=== PATIENT | female | born 1995 | race Caucasian/White ===

== ENCOUNTER 2020-02-05 16:22 | Inpatient (IN) | payer BC ==
[2020-02-05 16:52] LABS: APPEARANCE,URINE SLIGHTLY-CLOUDY; BILIRUBIN,URINE NEGATIVE (NEGATIVE); COLOR,URINE YELLOW; GLUCOSE, URINE NEGATIVE (NEGATIVE); KETONES,URINE TRACE mg/dL (NEGATIVE); LEUKOCYTE ESTERASE,URINE NEGATIVE (NEGATIVE); NITRITE,URINE NEGATIVE (NEGATIVE); PROTEIN,URINE NEGATIVE (NEGATIVE); URINE SPECIFIC GRAVITY 1.015; UROBILINOGEN,URINE NEGATIVE mg/dL (<2.0)
--- NOTE | 2020-02-05 17:03 | Admission Physical ---
Datetime Report Generated by CPN: 02/05/2020 17:03 CURRENT ADMISSION Chief Complaint: Uterine Contractions Chief Complaint Other: GBS neg Indication for Induction: Post Dates Admit Impression : Term, Intrauterine ; Active Labor Admit Plan: Admit to Unit; Initiate Labor Protocol ALLERGIES Medication Allergies: No Medication Allergies: No Known Allergies (02/05/2020) Latex: No Latex Allergies OBSTETRICAL HISTORY EDC: 02/03/2020 00:00 : 1 Para: 0 Term: 0 : 0 SAB: 0 IAB: 0 Livin PHYSICAL EXAM General: Normal HEENT: Deferred Neurologic: Normal Thyroid: Deferred Heart: Normal Lungs: Normal Breast: Deferred Back: Deferred Abdomen: Normal Genitourinary Exam: Normal Extremities: Normal DTRs: Deferred Pelvic Type: Adequate Physical Exam Comments: cervix exam per RN 5cm with BBOW was seen at [facility] today about 2 hrs ago and was 4cm Vital Signs: Reviewed FETUS A EGA: 40.2 Monitoring: External US FHR- Baseline: 145 Variability: Moderate 6-25bpm Accelerations: 15X15 FHR Category: Category I Presentation: Vertex Admit Comment: GBS neg INFORMED CONSENT Assignment: Jamie Yarbrough MD Signature: with User ID: Billy : with User ID: Billy
[2020-02-05 17:09] LABS: URINE AMPHETAMINES SCREEN NEGATIVE; URINE BARBITURATES SCREEN NEGATIVE; URINE BENZODIAZEPINES SCREEN NEGATIVE; URINE COCAINE SCREEN NEGATIVE; URINE MARIJUANA (THC) SCREEN NEGATIVE; URINE METHADONE SCREEN NEGATIVE; URINE PHENCYCLIDINE SCREEN NEGATIVE
[2020-02-05] MEDS ORDERED: RINGERS SOLUTION,LACTATED 1,000 ML IV PRN (17:52)
[2020-02-05] MEDS ORDERED: RINGERS SOLUTION,LACTATED 1,000 ML IV ONE (17:52)
[2020-02-05] MEDS ORDERED: EPHEDRINE SULFATE INJ 50 MG/1 ML AMPULE ONE (19:36)
[2020-02-05] MEDS ORDERED: ROPIVACAINE HCL 0.2% INJ/PF (2 MG/ML) 20 ML SDV ONE (19:36)
[2020-02-05] MEDS ORDERED: FENTANYL/BUPIVACAINE/NS/PF 300 MCG/150 ML RTUINJ EPI ONE (19:36)
[2020-02-05] MEDS ORDERED: OXYTOCIN 10 UNIT/ML VIAL ONE (19:37)
[2020-02-05] MEDS ORDERED: MISOPROSTOL 0.2 MG TABLET ONE (19:37)
[2020-02-05] MEDS ORDERED: OXYTOCIN/0.9 % SODIUM CHLORIDE 30 UNIT/500 ML RTUINJ ONE (19:37)
[2020-02-05] MEDS ORDERED: LIDOCAINE 1% INJ-PF (10 MG/ML) 30 ML SDV ONE (19:37)
[2020-02-05 19:48] LABS: ABSOLUTE LYMPHOCYTES (AUTO) 0.9 10^3/uL (0.5-4.7); ABSOLUTE MONOCYTES (AUTO) 0.8 10^3/uL (0.1-1.4); BASOPHILS % (AUTO) 0.1 % (0-2); EOSINOPHILS % (AUTO) 0.1 % (0-6); HEMATOCRIT 38.1 % (36.0-47.0); LYMPHOCYTES % (AUTO) 6.8 % (13-45); MEAN CORPUSCULAR HEMOGLOBIN 33.2 pg (27.0-33.4); MEAN CORPUSCULAR HGB CONC 34.1 g/dL (32.0-36.0); MEAN CORPUSCULAR VOLUME 97 fl (80-97); MONOCYTES % (AUTO) 5.7 % (3-13); PLATELET COUNT 150 10^3/uL (150-450); RED BLOOD COUNT 3.92 10^6/uL (3.72-5.28); RED CELL DISTRIBUTION WIDTH 13.7 % (11.5-14.0); SEGMENTED NEUTROPHILS % (AUTO) 87.3 % (42-78); TOTAL CELLS COUNTED % (AUTO) 100 %; WHITE BLOOD COUNT 13.7 10^3/uL (4.0-10.5)
[2020-02-05] MEDS ORDERED: OXYTOCIN/0.9 % SODIUM CHLORIDE 30 UNIT/500 ML RTUINJ IV PRN (21:26)
[2020-02-06] MEDS ORDERED: ACETAMINOPHEN 325 MG TABLET ONE (01:51)
[2020-02-06] MEDS ORDERED: MAGNESIUM HYDROXIDE SUSP 30 ML UDCUP PO PRN (03:01)
[2020-02-06] MEDS ORDERED: ACETAMINOPHEN 650 MG SUPP.RECT PR PRN (03:01)
[2020-02-06] MEDS ORDERED: ACETAMINOPHEN 325 MG TABLET PO PRN (03:01)
[2020-02-06] MEDS ORDERED: MEASLES,MUMPS&RUBELLA VACC/PF 0.5 ML VIAL SUBCUT PRN (03:01)
[2020-02-06] MEDS ORDERED: VARICELLA VACC/PF (1350 UNIT/0.5 ML) 0.5 ML VIAL SUBCUT PRN (03:01)
[2020-02-06] MEDS ORDERED: GLYCERIN/WITCH HAZEL LEAF 1 EACH MED..WIPE TP PRN (03:01)
[2020-02-06] MEDS ORDERED: MAG HYDROX/AL HYDROX/SIMETH SUSP 30 ML UDCUP PO PRN (03:01)
[2020-02-06] MEDS ORDERED: DIPH/PERTUSS(ACELL)/TETANUS VAC/PF 0.5 ML SYR (>=10YO) IM PRN (03:01)
[2020-02-06] MEDS ORDERED: ACETAMINOPHEN WITH CODEINE #3 TABLET PO PRN (03:01)
[2020-02-06] MEDS ORDERED: ZOLPIDEM TARTRATE 5 MG TABLET PO PRN (03:01)
[2020-02-06] MEDS ORDERED: BENZOCAINE/MENTHOL AEROSOL SPRAY 56 ML TOP PRN (03:01)
[2020-02-06] MEDS ORDERED: DIPHENHYDRAMINE HCL 25 MG CAPSULE PO PRN (03:01)
[2020-02-06] MEDS ORDERED: OXYTOCIN/0.9 % SODIUM CHLORIDE 30 UNIT/500 ML RTUINJ IV PRN (03:01)
[2020-02-06] MEDS ORDERED: PSEUDOEPHEDRINE HCL 30 MG TABLET PO PRN (03:01)
[2020-02-06] MEDS ORDERED: FAMOTIDINE 20 MG TABLET PO PRN (03:01)
[2020-02-06] MEDS ORDERED: DIBUCAINE 1% OINTMENT 28 GM TP PRN (03:01)
--- NOTE | 2020-02-06 04:17 | Birth Certificate Data ---
Cert Data Datetime Report Generated by CPN: 02/06/2020 04:16 CERTIFICATE DATA Delivery Provider: Jamie Yarbrough MD (02/05/2020 16:45:Marisa Sinclair RN) 47a. Care: Yes (02/05/2020 16:45:Aileen Butcher RN) 47b. Date of First Visit: 07/25/2019 00:00 (02/05/2020 16:45:Aileen Butcher RN) 47c. Date of Last Visit: 02/05/2020 00:00 (02/05/2020 16:45:Aileen Butcher RN) 47d. Number of Visits: 11 (02/05/2020 16:45:Aileen Butcher RN) 48a. Number of Prev Live Births: 0 (02/05/2020 16:45:Aileen Butcher RN) 48b. Now Livin (02/05/2020 16:45:Rosmery Hui RN) 48c. Live Births Now : 0 (02/05/2020 16:45:QS system process) 48e. Losses: 0 (02/05/2020 16:45:Aileen Butcher RN) RISK FACTORS IN THIS 49a. Diabetes: No (02/05/2020 16:45:Rosmery Hui RN) 49b. Hypertension: No (02/05/2020 16:45:Rosmery Hui RN) 49c. Previous Births: 0 (02/05/2020 16:45:Rosmery Hui RN) 49d. Stillborns: No (02/05/2020 16:45:Rosmery Hui RN) 49d. IUGR: No (02/05/2020 16:45:Rosmery Hui RN) 49e. Infertility Treatment: No (02/05/2020 16:45:Rosmery Hui RN) 49f. Previous Cesareans: 0 (02/05/2020 16:45:Aileen Butcher RN) Mother's Height 50b. Height Inches: 64 (02/05/2020 17:09:QS system process) Mother's Weight 51a. Pre- Weight (lbs): 104 (02/05/2020 16:45:Aileen Butcher RN) 51b. Weight at Delivery (lbs): 130 (02/05/2020 16:36:QS system process) Infections Present/Treated 53a. Gonorrhea: No (02/05/2020 16:45:Rosmery Hui RN) Results this Hospital Visit : Negative (02/05/2020 16:45:Rosmery Hui RN) 53b. Syphilis: No (02/05/2020 16:45:Rosmery Hui RN) 53c. Chlamydia: No (02/05/2020 16:45:Rosmery Hui RN) Results this Hospital Visit: Negative (02/05/2020 16:45:Rosmery Hui RN) 53d. Hepatitis B: No (02/05/2020 16:45:Rosmery Hui RN) Results this Hospital Visit: Negative (02/05/2020 16:45:Rosmery Hui RN) 53e. Hepatitis C: Negative (02/05/2020 16:45:Rosmery Hui RN) 53h. Mother Tested for HBsAG: Yes (02/05/2020 16:45:Rosmery Hui RN) 53i. Date Tested: 07/25/2019 00:00 (02/05/2020 16:45:Rosmery Hui RN) 53j. Test Result: Negative (02/05/2020 16:45:Rosmery Hui RN) Obstetric Procedures 54a, b, c. Obstetric Procedures: Ultrasound (02/05/2020 16:45:Rosmery Hui RN) Cigarette Smoking Cigarette Smoking: Never Smoker. [id number] (02/05/2020 16:45:Aileen Butcher RN) 55a. 3 Months Before Preg - Ci (02/05/2020 16:45:Aileen Butcher RN) 55a. Packs: 0 (02/05/2020 16:45:Aileen Butcher RN) 55b. 1st Trimester of Preg- Ci (02/05/2020 16:45:Aileen Butcher RN) 55b. Packs: 0 (02/05/2020 16:45:Aileen Butcher RN) 55c. 2nd Trimester of Preg- Ci (02/05/2020 16:45:Aileen Butcher RN) 55c. Packs: 0 (02/05/2020 16:45:Aileen Butcher RN) 55d. 3rd Trimester of Preg- Ci (02/05/2020 16:45:Aileen Butcher RN) 55d. Packs: 0 (02/05/2020 16:45:Aileen Butcher RN) Onset of Labor 56a. PROM >12 Hrs: 6.07 (02/05/2020 16:45:QS system process) 56b. Precipitous Labor <3 Hrs: 9 (02/05/2020 16:45:QS system process) 56c. Prolonged Labor > 20 Hrs: 9 (02/05/2020 16:45:QS system process) 57a. Induction of Labor: Augmentation (02/05/2020 16:45:Marisa Sinclair RN) 57c. Non-Vertex Presentation A: Face (02/05/2020 16:45:Marisa Sinclair RN) 57d. Steroids - Lung Mat: None (02/05/2020 16:45:Marisa Sinclair RN) 57d. Steroids - Lung Mat: Not Applicable (02/05/2020 16:45:Marisa Sinclair RN) 57f. Mat [place] or Temp >100.4: 100.2 (02/05/2020 16:45:Marisa Sinclair RN) 57g. Moderate/Heavy Meconium: Clear (02/05/2020 20:44:Marisa Sinclair RN) 57h. Intolerance of Labor: N/A (02/05/2020 16:45:Marisa Sinclair RN) : N/A (02/05/2020 16:45:Marisa Sinclair RN) 57i. Epidural/Spinal Anesthesia: Epidural (02/05/2020 16:45:Marisa Sinclair RN) Method of Delivery 58a. Forceps - Unsuccessful A: N/A (02/05/2020 16:45:Marisa Sinclair RN) 58b. Vacuum - Unsuccessful A: N/A (02/05/2020 16:45:Marisa Sinclair RN) 58c. Presentation at 58c. Presentation at - A : Face (02/05/2020 16:45:Marisa Sinclair RN) 58c. Presentation at - A : N/A (02/05/2020 16:45:Marisa Sinclair RN) 58c. Presentation at - A : Cephalic (02/06/2020 00:00:Marisa Sinclair RN) Final Route and Method of Del 58d. Baby A Route/Delivery: Vaginal (02/06/2020 02:48:Marisa Sinclair RN) 58e. Trial of Labor Attempted: Yes (02/05/2020 16:45:Marisa Sinclair RN) 58e. Trial of Labor Attempted A: N/A (02/05/2020 16:45:Marisa Sinclair RN) 58e. Trial of Labor Attempted B: N/A (02/05/2020 16:45:Marisa Sinclair RN) Maternal Morbidity 59b. 3rd or 4th Degree Lacs: Vaginal (02/05/2020 16:45:Jamie Yarbrough MD ([facility])) Birthweight Baby A: 3439 (02/05/2020 16:45:Brittany Washburn RN) 60a. Pounds : 7 (02/05/2020 16:45:QS system process) 60b. Ounces: 9 (02/05/2020 16:45:QS system process) 61. GA at Delivery Baby A: 40.3 (02/05/2020 16:45:Marisa Sinclair RN) : Full Term- 39- 40.6 Weeks (02/05/2020 16:45:QS system process) 62a. 5 Minute Baby A: 6 (02/05/2020 16:45:QS system process) 62b. 10 Minute Baby A: 8 (02/05/2020 16:45:QS system process)
--- NOTE | 2020-02-06 04:17 | Delivery Summary ---
Del Sum A-C Datetime Report Generated by CPN: 02/06/2020 04:16 DELIVERY PERSONNEL DELIVERY PERSONNEL: [id number] Delivery Doctor:: Jamie Yarbrough MD Labor and Delivery Nurse:: Marisa Sinclair RNdope worker Nurse:: Griselda Toney RN Nursery Nurse:: Brittany Washburn RN Nursery Nurse:: Danica Arenas RN Calculating Machine Operator/[employer] SERVICE EMPLOYEE: Maricarmen Green, ST MATERNAL INFORMATION Delivery Anesthesia: Epidural Medications After Delivery: Pitocin Bolus-Please Comment Maternal Complications: None LABOR SUMMARY EDC: 02/03/2020 00:00 No. Babies in Womb: 1 Attempted: Yes Labor Anesthesia: Epidural LABOR INFORMATION Reason for Induction: Not Applicable Onset of Labor: 02/05/2020 16:54 Complete Dilatation: 02/06/2020 00:00 Oxytocin: Augmentation Group B Beta Strep: neg Antibiotics # of Doses: 0 Name of Antibiotic Given: n/a Steroids Given: None Reason Steroids Not Administered: Not Applicable MEMBRANES Membranes Rupture Method: Artificial Rupture of Membranes: 02/05/2020 20:44 Length of Rupture (hr): 6.07 Amniotic Fluid Color: Clear Amniotic Fluid Amount: Moderate Amniotic Fluid Odor: Normal STAGES OF LABOR Stage 1 hr: 7 Stage 1 min: 6 Stage 2 hr: 2 Stage 2 min: 48 Stage 3 hr: 0 Stage 3 min: 3 Total Time in Labor hr: 9 Total Time in Labor min: 57 VAGINAL DELIVERY Episiotomy: None Laceration #1: Vaginal Laceration Repair: Yes Laceration Repair Note: labial tear and right vaginal side wall tear repaired with 2-0 vicryl Sponge Count Correct: Yes Sharps Count Correct: Yes CSECTION DELIVERY Primary Indication: N/A Secondary Indication: N/A CSection Incidence: N/A Labor: N/A Elective: N/A CSection Incision: N/A BABY A INFORMATION Infant Delivery Date/Time: 02/06/2020 02:48 Method of Delivery: Vaginal Nurse Controlled Delivery: No Born in Route : No : N/A Forceps: N/A Vacuum Extraction: N/A Shoulder Dystocia : No PRESENTATION/POSITION BABY A Presentation: Cephalic Cephalic Presentation: Face Vertex Position: Right Mentum Posterior Breech Presentation: N/A PLACENTA INFORMATION BABY A Placenta Delivery Time : 02/06/2020 02:51 Placenta Method of Delivery: Spontaneous Placenta Status: Delivered SCORES BABY A Heart Rate 1 min: Slow, Below 100 bpm Resp Effort 1 min: Absent Reflex Irritability 1 min: No Response Muscle Tone 1 min: Some Flexion of Extremities Color 1 min: Blue/Pale Resuscitation Effort 1 min: Tactile Stimulation; Oxygen; PPV/NCPAP SCORE 1 MIN: 2 Heart Rate 5 min: >100 bpm Resp Effort 5 min: Slow, Irregular Reflex Irritability 5 min: [place] Muscle Tone 5 min: Some Flexion of Extremities Color 5 min: Body [place], Extremities Blue SCORE 5 MIN: 6 Heart Rate 10 min: >100 bpm Resp Effort 10 min: [place] Reflex Irritability 10 min: Cough or Sneeze or Pulls Away Muscle Tone 10 min: Some Flexion of Extremities Color 10 min: Body [place], Extremities Blue SCORE 10 MIN: 8 INFANT INFORMATION BABY A Gestational Age at Delivery: 40.3 Gestational Status: Full Term- 39- 40.6 Weeks Infant Outcome : Liveborn Condition : Stable Sex: Male IDENTIFICATION BABY A Verification Date/Time: 02/06/2020 04:01 ID Band Number: [id number] Mother's Name Verified: Yes Infant RN Verifying Infant: Ty Toney, RN/ Ángel Charles, RN WEIGHT/LENGTH BABY A Birthweight (gm): 3439 Weight (lb): 7 Weight (oz): 9 Infant Length (in): 20.50 Length (cm): 52.07 CORD INFORMATION BABY A No. Cord Vessels: 3 Nuchal Cord : N/A Cord Blood Taken: Yes-For Storage (Mom's Blood type +) ASSESSMENT BABY A Infant Complications: Meconium Physical Findings at Delivery: Bruising; Other Infant Respirations: Grunting; Sternal Retractions Skin to Skin: No Transferred To: NICU BABY B INFORMATION : N/A SIGNATURES Signature: with User ID: [email or web address] : I was personally available for consultation and serving as supervising physician for the MLP.
[2020-02-06] MEDS: IBUPROFEN 800 MG TABLET PO SCH ×3 (05:57→21:19)
--- NOTE | 2020-02-06 11:16 | PDOC PROGRESS REPORT ---
Subjective-OB Progress Note for:: 02/06/20 Subjective: pt in nursery to see baby, mom in room and states she is doing well, voiding and eating well, Physical Exam (OB) Vital Signs: Temp Pulse Resp BP Pulse Ox 97.9 F 67 16 122/76 99 02/06/20 07:58 02/06/20 07:58 02/06/20 07:58 02/06/20 07:58 02/06/20 07:58 Intake & Output 02/05/20 02/06/20 02/07/20 06:59 06:59 06:59 Intake Total 320 Output Total 650 Balance -330 Weight 59 kg - PIH/Pre-Eclampsia Clonus: Negative Headache: Absent Epigastric Pain: No Visual Changes: No - Maternal Morbidity 59. Maternal Morbidity (serious complications experinced by the mother associated with labor and delivery: None of the above - Lochia Lochia Amount: Small 10-25 ml Lochia Color: Rubra/Red - Abdomen Description: Soft, Round Hernia Present: No Fundal Description: Firm, Non-Midline Describe if Not Midline: slghtly right deviated Fundal Height: u/u - u/2 Objective-Diagnostic Laboratory: 02/05/20 19:34 02/05/20 02/05/20 02/05/20 16:40 19:34 19:34 WBC 13.7 H RBC 3.92 Hgb 13.0 Hct 38.1 MCV 97 MCH 33.2 MCHC 34.1 RDW 13.7 Plt Count 150 Seg Neutrophils % 87.3 H Urine Color YELLOW Urine Appearance SLIGHTLY-CLOUDY Urine pH 6.0 Ur Specific [place] 1.015 Urine Protein NEGATIVE Urine Glucose (UA) NEGATIVE Urine Ketones TRACE H Urine Blood MODERATE H Urine Nitrite NEGATIVE Ur Leukocyte Esterase NEGATIVE Blood Type A POSITIVE Antibody Screen NEGATIVE Assessment and Plan(PN) - Assessment and Plan (1) Face presentation, delivered Is this a current diagnosis for this admission?: Yes (2) Mentum presentation of fetus, antepartum Qualifiers: Fetus number: single or unspecified fetus Qualified Code(s): O32.3XX0 - Maternal care for face, brow and chin presentation, not applicable or unspecified Is this a current diagnosis for this admission?: Yes - Time Spent with Patient Time with patient: Less than 15 minutes Medications reviewed and adjusted accordingly: Yes - Disposition Anticipated Discharge Disposition: Home, Self Care Anticipated Discharge Timeframe: within 48 hours
[2020-02-06] MEDS: DOCUSATE SODIUM 100 MG CAPSULE PO SCH ×2 (11:35→18:03)
[2020-02-06] MEDS: PRENATAL VITAMIN W DHA CAPSULE PO SCH (11:35)
[2020-02-06] MEDS: FERROUS SULFATE 325 MG TABLET PO SCH ×2 (11:35→18:03)
[2020-02-06] MEDS: SENNOSIDES/DOCUSATE 8.6-50 MG 1 EACH TABLET PO SCH (11:35)
[2020-02-07] MEDS: IBUPROFEN 800 MG TABLET PO SCH ×3 (06:01→22:38)
[2020-02-07 07:47] LABS: MEAN CORPUSCULAR HEMOGLOBIN 34.3 pg (27.0-33.4); MEAN CORPUSCULAR HGB CONC 34.9 g/dL (32.0-36.0); MEAN CORPUSCULAR VOLUME 98 fl (80-97); PLATELET COUNT 127 10^3/uL (150-450); RED BLOOD COUNT 3.05 10^6/uL (3.72-5.28); RED CELL DISTRIBUTION WIDTH 13.9 % (11.5-14.0); WHITE BLOOD COUNT 11.2 10^3/uL (4.0-10.5)
[2020-02-07 07:49] LABS: HEMOGLOBIN 10.5 g/dL (12.0-15.5)
[2020-02-07] MEDS: PRENATAL VITAMIN W DHA CAPSULE PO SCH (09:11)
[2020-02-07] MEDS: SENNOSIDES/DOCUSATE 8.6-50 MG 1 EACH TABLET PO SCH (09:11)
[2020-02-07] MEDS: FERROUS SULFATE 325 MG TABLET PO SCH ×2 (09:11→18:13)
[2020-02-07] MEDS: DOCUSATE SODIUM 100 MG CAPSULE PO SCH ×2 (09:11→18:13)
--- NOTE | 2020-02-07 09:30 | PDOC PROGRESS REPORT ---
Subjective-OB Progress Note for:: 02/07/20 Subjective: Sitting up in bed, mother holding baby, breast and bottle feeding, voiding, eating well, scant lochia Physical Exam (OB) Vital Signs: Temp Pulse Resp BP Pulse Ox 97.8 F 54 L 18 112/64 100 02/07/20 07:40 02/07/20 07:40 02/07/20 07:40 02/07/20 07:40 02/07/20 07:40 Intake & Output 02/06/20 02/07/20 02/08/20 06:59 06:59 06:59 Intake Total 820 Output Total 650 Balance 170 Weight 59 kg - PIH/Pre-Eclampsia Clonus: Negative Headache: Absent Epigastric Pain: No Visual Changes: No - Maternal Morbidity 59. Maternal Morbidity (serious complications experinced by the mother associated with labor and delivery: None of the above - Lochia Lochia Amount: Scant < 10 ml Lochia Color: Rubra/Red - Abdomen Description: Soft, Round Hernia Present: No Fundal Description: Firm, Midline Describe if Not Midline: slghtly right deviated Fundal Height: u/u - u/2 Objective-Diagnostic Laboratory: 02/07/20 06:33 02/07/20 06:33 WBC 11.2 H RBC 3.05 L Hgb 10.5 L D Hct 30.0 L MCV 98 H MCH 34.3 H MCHC 34.9 RDW 13.9 Plt Count 127 L Assessment and Plan(PN) - Assessment and Plan (1) Face presentation, delivered Is this a current diagnosis for this admission?: Yes (2) Mentum presentation of fetus, antepartum Qualifiers: Fetus number: single or unspecified fetus Qualified Code(s): O32.3XX0 - Maternal care for face, brow and chin presentation, not applicable or unspecified Is this a current diagnosis for this admission?: Yes - Time Spent with Patient Time with patient: Less than 15 minutes Medications reviewed and adjusted accordingly: Yes - Disposition Anticipated Discharge Disposition: Home, Self Care Anticipated Discharge Timeframe: within 24 hours
[2020-02-08] MEDS: IBUPROFEN 800 MG TABLET PO SCH (05:44)
[2020-02-08] MEDS: FERROUS SULFATE 325 MG TABLET PO SCH (10:03)
[2020-02-08] MEDS: PRENATAL VITAMIN W DHA CAPSULE PO SCH (10:03)
[2020-02-08] MEDS: SENNOSIDES/DOCUSATE 8.6-50 MG 1 EACH TABLET PO SCH (10:04)
[2020-02-08] MEDS: DOCUSATE SODIUM 100 MG CAPSULE PO SCH (10:04)
--- NOTE | 2020-02-08 10:42 | PDOC PROGRESS REPORT ---
Subjective-OB Progress Note for:: 02/08/20 Subjective: Ready to go home, hsb at BS, eating and drinking well, voiding and eating well, scant lochia Physical Exam (OB) Vital Signs: Temp Pulse Resp BP Pulse Ox 97.6 F 63 16 109/71 98 02/08/20 09:26 02/08/20 07:07 02/08/20 07:07 02/08/20 07:07 02/08/20 07:07 Intake & Output 02/07/20 02/08/20 02/09/20 06:59 06:59 06:59 Intake Total 820 1200 Output Total 650 Balance 170 1200 - PIH/Pre-Eclampsia Clonus: Negative Headache: Absent Epigastric Pain: No Visual Changes: No - Maternal Morbidity 59. Maternal Morbidity (serious complications experinced by the mother associated with labor and delivery: None of the above - Lochia Lochia Amount: Scant < 10 ml Lochia Color: Rubra/Red - Abdomen Description: Soft, Round Hernia Present: No Fundal Description: Firm, Midline Describe if Not Midline: slghtly right deviated Fundal Height: u/u - u/2 Objective-Diagnostic Laboratory: 02/07/20 06:33 Assessment and Plan(PN) - Assessment and Plan (1) Face presentation, delivered Is this a current diagnosis for this admission?: Yes (2) Mentum presentation of fetus, antepartum Qualifiers: Fetus number: single or unspecified fetus Qualified Code(s): O32.3XX0 - Maternal care for face, brow and chin presentation, not applicable or unspecified Is this a current diagnosis for this admission?: Yes (3) Anemia Qualifiers: Anemia type: iron deficiency Is this a current diagnosis for this admission?: Yes (4) Laceration of vaginal wall or sulcus without perineal laceration during delivery Is this a current diagnosis for this admission?: Yes - Time Spent with Patient Time with patient: Less than 15 minutes Medications reviewed and adjusted accordingly: Yes - Disposition Anticipated Discharge Disposition: Home, Self Care Anticipated Discharge Timeframe: within 24 hours
--- NOTE | 2020-02-08 10:47 | PDOC DISCHARGE SUMMARY ---
Impression - Admit/DC Date/PCP Admission Date/Primary Care Provider: 02/05/20 17:00 FARIDA CARMEN MD Discharge Date: 02/08/20 - Discharge Diagnosis (1) Face presentation, delivered Is this a current diagnosis for this admission?: Yes (2) Mentum presentation of fetus, antepartum Is this a current diagnosis for this admission?: Yes (3) Anemia Is this a current diagnosis for this admission?: Yes (4) Laceration of vaginal wall or sulcus without perineal laceration during delivery Is this a current diagnosis for this admission?: Yes - Additional Information Resuscitation Status: Full Code Discharge Diet: As Tolerated, Regular Discharge Activity: Activity As Tolerated, Pelvic Rest Referrals: FARIDA CARMEN MD [Primary Care Provider] - (wha 4 weeks) Home Medications: Pnv 102/Iron/Folate 1/Dss/Dha [Vitafol Fe+ Docusate Combo Pck] 1 each PO DAILY 02/05/20 Ferrous Sulfate [Feosol 325 mg Tablet] 325 mg PO BID tablet 02/08/20 HPI Gestational Age: 40.3 Reason(s) for Admission: Onset of Labor Procedures: NST, Ultrasound Intrapartum Procedure(s): Spontaneous Vaginal Delivery Complication(s): Laceration-Vaginal, Laceration-Labial Laceration-Degree: 1st Hospital Course Hospital Course: normal pp 59. Maternal Morbidity (serious complications experinced by the mother associated with labor and delivery: None of the above Results Laboratory Results: WBC 11.2 10^3/uL (4.0-10.5) H 02/07/20 06:33 RBC 3.05 10^6/uL (3.72-5.28) L 02/07/20 06:33 Hgb 10.5 g/dL (12.0-15.5) L D 02/07/20 06:33 Hct 30.0 % (36.0-47.0) L 02/07/20 06:33 MCV 98 fl (80-97) H 02/07/20 06:33 MCH 34.3 pg (27.0-33.4) H 02/07/20 06:33 MCHC 34.9 g/dL (32.0-36.0) 02/07/20 06:33 RDW 13.9 % (11.5-14.0) 02/07/20 06:33 Plt Count 127 10^3/uL (150-450) L 02/07/20 06:33 Lymph % (Auto) 6.8 % (13-45) L 02/05/20 19:34 [place] % (Auto) 5.7 % (3-13) 02/05/20 19:34 Eos % (Auto) 0.1 % (0-6) 02/05/20 19:34 Baso % (Auto) 0.1 % (0-2) 02/05/20 19:34 Absolute Neuts (auto) 12.0 10^3/uL (1.7-8.2) H 02/05/20 19:34 Absolute Lymphs (auto) 0.9 10^3/uL (0.5-4.7) 02/05/20 19:34 Absolute Monos (auto) 0.8 10^3/uL (0.1-1.4) 02/05/20 19:34 Absolute Eos (auto) 0.0 10^3/uL (0.0-0.6) 02/05/20 19:34 Absolute Basos (auto) 0.0 10^3/uL (0.0-0.2) 02/05/20 19:34 Seg Neutrophils % 87.3 % (42-78) H 02/05/20 19:34 Urine Color YELLOW 02/05/20 16:40 Urine Appearance SLIGHTLY-CLOUDY 02/05/20 16:40 Urine pH 6.0 (5.0-9.0) 02/05/20 16:40 Ur Specific [place] 1.015 02/05/20 16:40 Urine Protein NEGATIVE mg/dL (NEGATIVE) 02/05/20 16:40 Urine Glucose (UA) NEGATIVE mg/dL (NEGATIVE) 02/05/20 16:40 Urine Ketones TRACE mg/dL (NEGATIVE) H 02/05/20 16:40 Urine Blood MODERATE (NEGATIVE) H 02/05/20 16:40 Urine Nitrite NEGATIVE (NEGATIVE) 02/05/20 16:40 Urine Bilirubin NEGATIVE (NEGATIVE) 02/05/20 16:40 Urine Urobilinogen NEGATIVE mg/dL (<2.0) 02/05/20 16:40 Ur Leukocyte Esterase NEGATIVE (NEGATIVE) 02/05/20 16:40 Urine Ascorbic Acid NEGATIVE (NEGATIVE) 02/05/20 16:40 Urine Opiates Screen NEGATIVE 02/05/20 16:40 Urine Methadone Screen NEGATIVE 02/05/20 16:40 Ur Barbiturates Screen NEGATIVE 02/05/20 16:40 Ur Phencyclidine Scrn NEGATIVE 02/05/20 16:40 Ur Amphetamines Screen NEGATIVE 02/05/20 16:40 U Benzodiazepines Scrn NEGATIVE 02/05/20 16:40 Urine Cocaine Screen NEGATIVE 02/05/20 16:40 U Marijuana (THC) Screen NEGATIVE 02/05/20 16:40 RPR NONREACTIVE (NONREACTIVE) 02/05/20 19:34 Blood Type A POSITIVE 02/05/20 19:34 Antibody Screen NEGATIVE 02/05/20 19:34 Plan Health Concerns: anemia Plan of Treatment: dc home, continue iron, rev S&S to report Goals: no complications Time Spent: Less than 30 Minutes
[2020-02-08 11:27] VITALS: BP 122/76
== END 2020-02-08 14:15 | disposition home or self-care (01) | DRG 806 ==
LOC: LC 16:22 → LR 17:00 → 2S 02-06 05:01
PROVIDERS: ADMIT Obstetrics & Gynecology Gynecology; ATTEND Obstetrics & Gynecology Gynecology
PROC: 10E0XZZ Delivery of Products of Conception, External Approach (ICD-10-PCS; principal; 2020-02-06)
PROC: 0UQGXZZ Repair Vagina, External Approach (ICD-10-PCS; 2020-02-06)
DX: O48.0 Post-term pregnancy (principal); O71.4 Obstetric high vaginal laceration alone; Z37.0 Single live birth; O32.3XX0 Maternal care for face, brow and chin presentation, not applicable or unspecified; Z3A.40 40 weeks gestation of pregnancy; O77.0 Labor and delivery complicated by meconium in amniotic fluid; O99.02 Anemia complicating childbirth; D64.9 Anemia, unspecified
CPT/HCPCS: 36415; 80307; 81005; 85025; 85027; 86592; 86850; 86900; 86901; 99465; J2590; J2795; J3010; J3490